=== PATIENT | female | born 1995 | race Caucasian/White ===

== ENCOUNTER 2024-11-06 20:56 | Inpatient (IN) ==
[2024-11-06] MEDS ORDERED: LIDOCAINE 1% LOCAL 20 ML VIAL INFIL PRN (21:58)
[2024-11-06] MEDS: LACTATED RINGER'S 1,000 ML IV PRN (22:08)
--- NOTE | 2024-11-06 22:23 | Obstetrical Progress Note ---
Date of Service November 06, 2024 Assessment & Plan (1) PROM (premature rupture of membranes): Plan: 29-year-old old G1, P0 at 38-week gestation. is complicated by gestational diabetes. Patient receives 35 units of Lantus at night. Presents to labor and delivery with spontaneous rupture of membranes at 2200 hrs. fluid was clear. Relevant reviewed patient is grossly ruptured. heart rate category 1. Irregular contraction FS; 95 Bedside ultrasound shows a polyp presentation. Vaginal exam by nurse; 1cm/thick/post Reviewed previous course past medical history social history family history with patient. Plan 1 Admitted 2 labs 3. Consider starting Pitocin if patient's contractions intensity or frequency and are adequate. Patient is agreeable to plan as discussed above. Results & Data Vital Signs (Past 12 Hours) Vital Signs Temp Pulse Resp BP O2 Del Method 11/06/24 21:38 36.5 C 18 Room Air 11/06/24 21:30 36.5 C 111 H 18 126/85
[2024-11-06] MEDS ORDERED: Nursing to Pharmacy Communication SCH (22:45)
[2024-11-06 22:53] LABS: Hematocrit (blood only) 37.6 % (37.0-47.0); Hemoglobin 12.9 g/dl (12.0-16.0); Mean Corpuscular Hemoglobin 31.4 pg (25.0-34.0); Mean Corpuscular Volume 91.5 fL (80.0-100.0); Platelet Count 155 K/uL (130-400); RDW Standard Deviation 41.2 fL (36.4-46.3); Red Blood Count 4.11 M/uL (4.20-5.40); White Blood Count 8.67 K/ul (4.8-10.8)
[2024-11-06] MEDS: LANTUS PER UNIT CHARGE SQ SCH (23:15)
[2024-11-06] MEDS ORDERED: NALOXONE HCL 1 MG in SODIUM CHLORIDE 0.9% 1,000 ML IV PRN (23:19)
[2024-11-06] MEDS ORDERED: ROPIVACAINE 0.5% PF 5 MG/ML 20 ML VIAL EPI PRN (23:19)
[2024-11-06] MEDS ORDERED: LIDOCAINE 2% MPF LOCAL 5 ML VIAL EPI PRN (23:19)
[2024-11-06] MEDS ORDERED: NALOXONE HCL 0.4 MG/1 ML VIAL/CARP IV PRN (23:19)
[2024-11-06] MEDS ORDERED: BUPIVACAINE 0.25% PF 30 ML VIAL EPI PRN (23:19)
[2024-11-06] MEDS ORDERED: NALBUPHINE HCL INJ 10 MG/ML AMP IV PRN (23:19)
[2024-11-06] MEDS ORDERED: diphenhydrAMINE 50 MG/ML VIAL IV PRN (23:19)
[2024-11-06] MEDS ORDERED: SODIUM CHLORIDE 0.9% PF INJ 10 ML VIAL EPI PRN (23:19)
--- NOTE | 2024-11-06 23:19 | Anesthesiology Consultation ---
Date of Service November 06, 2024 Assessment & Plan (1) Encounter for pre-operative examination: Chart Review Chart Review: Patient NOT seen in Pre Admission Testing and Acceptable Risk for Labor Epidural Consults Requested none History Height/Weight Height: 5 ft 4 in Weight: 85.275 kg Allergies Allergy/AdvReac Type Severity Reaction Status Date / Time No Known Allergies Allergy Verified 11/06/24 21:34 Medications Home Medications Medication Instructions Recorded Confirmed Last Taken famotidine 20 mg tablet (Pepcid) 20 mg PO DAILY PRN Acid Reflux 11/06/24 11/06/24 11/05/24 insulin glargine 100 unit/mL 35 unit subcut HS 11/06/24 11/06/24 11/05/24 22:00 subcutaneous cartridge metoprolol succinate 25 mg 12.5 mg PO BID 11/06/24 11/06/24 11/06/24 tablet,extended release 24 hr [id number] 1 mg 1 tab PO DAILY 11/06/24 11/06/24 11/06/24 tablet Active Medications Generic Name Dose Route Start Last Admin Trade Name Freq PRN Reason Stop Dose Admin Lactated Ringer's 1,000 mls @ 125 mls/hr 11/06/24 21:58 11/06/24 23:17 Lr IV 11/08/24 21:57 125 mls/hr .Q8H PRN Administration L&D Protocol Protocol Insulin Glargine 35 units 11/06/24 22:45 11/06/24 23:15 Lantus Per Unit Charge SQ 12/06/24 22:44 35 units HS MARIAMA Administration Past Medical History Medical History Sinus tachycardia See cardiology and is on current meds Gestational diabetes Insulin controlled Social History Smoking Status: Never smoker Hx Alcohol Use: No Hx Substance Use: No Physical Exam Vital Signs Last Vital Signs Temp 97.7 F 11/06/24 21:38 Pulse 103 H 11/06/24 23:16 Resp 18 11/06/24 21:38 BP 126/85 11/06/24 21:30 Pulse Ox 99 11/06/24 23:16 O2 Del Method Room Air 11/06/24 21:38 Testing Laboratory Results 11/06/24 22:31 11/06/24 22:12 POC Glucose 95
[2024-11-06] MEDS: LIDOCAINE 2%/EPINEPHRINE 1:200,000 20 ML PF EPI STA (23:36)
[2024-11-06] MEDS: BUPIVACAINE 0.25% PF 30 ML VIAL EPI STA (23:36)
[2024-11-06] MEDS: fentANYL 2 MCG/ML BUPIVacaine 0.125%-NSS 100ML BAG EPI PRN (23:38)
[2024-11-06] MEDS: METOPROLOL SUCC 25MG EXT REL TAB PO SCH (23:41)
[2024-11-06] MEDS: fentANYL 2 MCG/ML BUPIVacaine 0.125%-NSS 100ML BAG ONE (23:54)
[2024-11-06] MEDS: BUPIVACAINE 0.25% PF 30 ML VIAL ONE (23:54)
[2024-11-06] MEDS: SODIUM CHLORIDE 0.9% PF INJ 10 ML VIAL ONE (23:55)
[2024-11-06] MEDS: SODIUM CHLORIDE 0.9% PF INJ 10 ML VIAL EPI STA (23:55)
[2024-11-06] MEDS: LIDOCAINE 2%/EPINEPHRINE 1:200,000 20 ML PF ONE (23:55)
[2024-11-07] MEDS: OXYTOCIN 30 UNITS/NSS 30 UNITS/500 ML BAG IV PRN ×2 (01:37→10:49)
[2024-11-07] MEDS ORDERED: FAMOTIDINE 20 MG TAB PO PRN (07:39)
--- NOTE | 2024-11-07 08:39 | History & Physical Report ---
Date of Service November 07, 2024 Assessment & Plan (1) Sinus tachycardia: (2) Gestational diabetes: (3) Active labor at term: Plan: 29-year-old G1, P0 at 38 weeks and 3 days of gestation, SROM yesterday at 8 PM, GBS negative, GDMA2, on insulin, heart rate reassuring, and second stage of labor with no sensation of pressure no urge to push, trial of push with no descent of head Discussed either pushing versus labor down, patient will labor down and then s tart pushing continue to monitor closely Admission and Anticipated Discharge Date Admission Date: November 06, 2024 History of Present Illness Primary Care Provider: NO PCP Patient is seen and examined. She is a 29-year-old at 38 weeks and 3 days of gestation who was admitted last night by Dr. Ramirez for spontaneous rupture of membranes at term. She was started on oxytocin per protocol after 4 hours from rupture. She has received epidural and has been feeling comfortable. Fluid leakage has been clear and she has no complaints at the moment. Her is complicated by 1. Sinus tachycardia, is seeing cardiology and started on metoprolol, 12.5 mg twice a day, 2. GDM A2, on insulin, 35 units at night only, fingersticks have been normal since admission, growth scan at 34-week was within normal limits, denies any other medical problems, GBS negative Allergies Allergy/AdvReac Type Severity Reaction Status Date / Time No Known Allergies Allergy Verified 11/06/24 21:34 Home Medications Medication Instructions Recorded Confirmed Type famotidine 20 mg tablet (Pepcid) 20 mg PO DAILY PRN Acid Reflux 11/06/24 11/06/24 History insulin glargine 100 unit/mL 35 unit subcut HS 11/06/24 11/06/24 History subcutaneous cartridge metoprolol succinate 25 mg 12.5 mg PO BID 11/06/24 11/06/24 History tablet,extended release 24 hr [id number] 1 mg 1 tab PO DAILY 11/06/24 11/06/24 History tablet Patient History Medical History Sinus tachycardia See cardiology and is on current meds Gestational diabetes Insulin controlled Social History Smoking Status: Never smoker Hx Alcohol Use: No Hx Substance Use: No Preferred Language: [place] [employer] 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 Beliefs That Will Affect Care: None marital status: Current Living Situation: Spouse Current Living Situation Comment: house with Other Information That Helps Us Care for You: No Feels Safe at Home: Yes Safety Concerns: Feels Safe At This Time 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 no history of STDs, no history of chlamydia, gonorrhea, herpes Review of Systems as per Subjective / HPI Physical Exam Constitutional: WD/WN, vitals as above well developed, well nourished and comfortable Genitourinary: normal external appearance OB Exam Abdomen: + vertex Manual OB Exam: + cervical dilation 10 cm, + cervical effacement 100% and + station + 2 OB Exam Monitor Tracing: + external uterine monitor used and + category I Results & Data Vital Signs (Past 12 Hours) Vital Signs Temp Pulse Resp BP Pulse Ox O2 Del Method 11/07/24 08:32 118 H 139/73 11/07/24 08:31 119 H 98 11/07/24 08:26 120 H 98 11/07/24 08:21 118 H 98 11/07/24 08:16 97 11/07/24 08:16 123 H 11/07/24 08:16 121 H 130/78 11/07/24 08:11 117 H 98 11/07/24 08:06 120 H 97 11/07/24 08:01 98 11/07/24 08:01 116 H 11/07/24 08:01 116 H 116/82 11/07/24 07:56 119 H 98 11/07/24 07:51 118 H 97 11/07/24 07:46 98 11/07/24 07:46 120 H 11/07/24 07:46 120 H 117/77 11/07/24 07:41 126 H 99 11/07/24 07:36 114 H 98 11/07/24 07:31 115 H 98 11/07/24 07:26 115 H 98 11/07/24 07:21 113 H 98 11/07/24 07:16 98 11/07/24 07:16 107 H 11/07/24 07:16 113 H 127/92 11/07/24 07:11 116 H 98 11/07/24 07:06 114 H 98 11/07/24 07:02 116 H 125/90 11/07/24 07:01 116 H 98 11/07/24 06:56 118 H 98 11/07/24 06:51 111 H 98 11/07/24 06:46 98 11/07/24 06:46 118 H 11/07/24 06:46 118 H 121/80 11/07/24 06:41 114 H 97 11/07/24 06:36 108 H 97 11/07/24 06:31 117 H 127/99 97 11/07/24 06:30 16 11/07/24 06:30 16 11/07/24 06:26 118 H 96 11/07/24 06:21 108 H 96 11/07/24 06:16 105 H 97 11/07/24 06:15 93 H 89/53 L 11/07/24 06:11 96 H 97 11/07/24 06:06 100 H 97 11/07/24 06:01 97 H 96 11/07/24 06:00 98 H 16 97/57 L 11/07/24 05:56 99 H 96 11/07/24 05:51 96 H 95 11/07/24 05:48 95 H 94 11/07/24 05:47 94 H 91/54 L 11/07/24 05:46 94 H 97 11/07/24 05:41 98 H 97 11/07/24 05:40 16 11/07/24 05:40 36.6 C 16 11/07/24 05:36 100 H 96 11/07/24 05:31 94 H 96 11/07/24 05:30 97 H 85/53 L 11/07/24 05:28 95 H 94 11/07/24 05:26 106 H 96 11/07/24 05:21 87 95 11/07/24 05:19 91 H 94 11/07/24 05:16 104 H 97 11/07/24 05:15 94 H 89/52 L 11/07/24 05:11 96 H 96 11/07/24 05:08 87 94 11/07/24 05:06 86 94 11/07/24 05:01 91 H 94 11/07/24 05:00 93 H 16 92/52 L 11/07/24 04:56 90 93 11/07/24 04:51 93 H 95 11/07/24 04:50 91 H 94 11/07/24 04:47 93 H 92/52 L 11/07/24 04:46 95 H 96 11/07/24 04:45 100 H 94 11/07/24 04:41 94 H 95 11/07/24 04:36 92 H 96 11/07/24 04:31 96 11/07/24 04:31 93 H 11/07/24 04:31 95 H 92/59 L 11/07/24 04:26 94 H 95 11/07/24 04:25 93 H 94 11/07/24 04:21 92 H 95 11/07/24 04:17 104 H 94 11/07/24 04:16 97 H 95 11/07/24 04:15 93 H 92/55 L 11/07/24 04:11 97 H 97 11/07/24 04:08 94 H 94 11/07/24 04:06 96 H 96 11/07/24 04:01 105 H 97 11/07/24 04:00 100 H 18 90/57 L 11/07/24 03:56 97 H 98 11/07/24 03:51 107 H 97 11/07/24 03:46 100 H 97 11/07/24 03:45 103 H 91/52 L 11/07/24 03:41 97 H 96 11/07/24 03:36 97 H 97 11/07/24 03:31 97 11/07/24 03:31 104 H 11/07/24 03:31 100 H 100/59 L 11/07/24 03:30 16 11/07/24 03:30 36.5 C 16 11/07/24 03:26 99 H 98 11/07/24 03:21 106 H 98 11/07/24 03:16 98 11/07/24 03:16 103 H 11/07/24 03:16 96 H 101/57 L 11/07/24 03:11 102 H 97 11/07/24 03:06 108 H 97 11/07/24 03:01 101 H 97 11/07/24 03:00 103 H 16 89/59 L 11/07/24 02:56 99 H 97 11/07/24 02:51 106 H 97 11/07/24 02:47 109 H 96/70 L 11/07/24 02:46 103 H 98 11/07/24 02:45 104 H 88/53 L 11/07/24 02:41 101 H 98 11/07/24 02:36 99 H 96 11/07/24 02:31 100 H 97 11/07/24 02:30 101 H 16 95/55 L 11/07/24 02:26 100 H 98 11/07/24 02:21 101 H 97 11/07/24 02:16 103 H 97 11/07/24 02:15 99 H 94/54 L 11/07/24 02:11 97 H 97 11/07/24 02:06 97 H 96 11/07/24 02:01 102 H 97 11/07/24 02:00 100 H 100/58 L 11/07/24 01:56 100 H 97 11/07/24 01:51 104 H 96 11/07/24 01:46 98 11/07/24 01:46 101 H 11/07/24 01:46 100 H 96/56 L 11/07/24 01:41 100 H 98 11/07/24 01:36 100 H 97 11/07/24 01:31 111 H 97 11/07/24 01:30 111 H 111/74 11/07/24 01:26 116 H 99 11/07/24 01:25 18 11/07/24 01:25 36.8 C 18 11/07/24 01:21 115 H 98 11/07/24 01:16 114 H 97 11/07/24 01:15 106 H 115/72 11/07/24 01:11 109 H 96 11/07/24 01:06 111 H 96 11/07/24 01:01 113 H 97 11/07/24 01:00 105 H 115/77 11/07/24 00:57 115 H 97 11/07/24 00:51 112 H 97 11/07/24 00:46 108 H 96 11/07/24 00:45 112 H 113/78 11/07/24 00:41 111 H 96 11/07/24 00:36 107 H 97 11/07/24 00:31 99 11/07/24 00:31 118 H 11/07/24 00:31 118 H 131/84 11/07/24 00:27 119 H 98 11/07/24 00:21 112 H 97 11/07/24 00:17 112 H 98 11/07/24 00:15 106 H 100/58 L 11/07/24 00:12 100 H 97 11/07/24 00:06 107 H 97 11/07/24 00:01 110 H 98 11/07/24 00:00 105 H 101/61 11/06/24 23:56 94 H 98 11/06/24 23:52 104 H 98 11/06/24 23:46 110 H 98 11/06/24 23:45 105 H 103/61 11/06/24 23:43 125 H 116/57 L 11/06/24 23:41 107 H 109/59 L 98 11/06/24 23:39 104 H 106/63 11/06/24 23:37 105 H 11/06/24 23:37 105 H 116/73 98 11/06/24 23:35 113 H 123/81 11/06/24 23:33 114 H 133/92 11/06/24 23:31 113 H 97 11/06/24 23:27 116 H 98 11/06/24 23:22 110 H 98 11/06/24 23:18 100 H 130/92 11/06/24 23:17 36.6 C 11/06/24 23:16 103 H 99 11/06/24 23:10 119 H 98 11/06/24 23:05 106 H 98 11/06/24 23:00 107 H 98 11/06/24 22:55 103 H 98 11/06/24 22:49 104 H 99 11/06/24 22:45 103 H 98 11/06/24 22:40 111 H 98 11/06/24 22:34 103 H 97 11/06/24 21:38 36.5 C 18 Room Air 11/06/24 21:30 36.5 C 111 H 18 126/85 Laboratory Results Lab Results 11/06/24 11/06/24 11/07/24 Range/Units 22:12 22:31 06:34 WBC 8.67 (4.8-10.8) K/ul RBC 4.11 L (4.20-5.40) M/uL Hgb 12.9 (12.0-16.0) g/dl Hct 37.6 (37.0-47.0) % MCV 91.5 (80.0-100.0) fL MCH 31.4 (25.0-34.0) pg MCHC 34.3 (32.0-36.0) g/dL RDW Std Deviation 41.2 (36.4-46.3) fL RDW Coeff of Andrew 12.5 (11.5-14.5) % Plt Count 155 (130-400) K/uL MPV 11.1 (9.4-12.4) fL POC Glucose 95 70 (70-99) mg/dl Treponema pallidum Ab Negative (Negative) 11/07/24 11/07/24 Range/Units 07:29 08:34 WBC (4.8-10.8) K/ul RBC (4.20-5.40) M/uL Hgb (12.0-16.0) g/dl Hct (37.0-47.0) % MCV (80.0-100.0) fL MCH (25.0-34.0) pg MCHC (32.0-36.0) g/dL RDW Std Deviation (36.4-46.3) fL RDW Coeff of Andrew (11.5-14.5) % Plt Count (130-400) K/uL MPV (9.4-12.4) fL POC Glucose 86 86 (70-99) mg/dl Treponema pallidum Ab (Negative) (2) Gestational diabetes Gestational diabetes mellitus control: insulin-controlled Trimester: third trimester Qualified Code(s): O24.414 - Gestational diabetes mellitus in , insulin controlled
[2024-11-07] MEDS: METOPROLOL SUCC 25MG EXT REL TAB PO SCH (09:00)
[2024-11-07] MEDS: ACETAMINOPHEN 325 MG TAB PO PRN (09:04)
[2024-11-07] MEDS ORDERED: ACETAMINOPHEN 325 MG TAB PO PRN (10:50)
[2024-11-07] MEDS ORDERED: HYDROCORTISONE ACETATE 25 MG SUPP PR PRN (10:50)
[2024-11-07] MEDS ORDERED: OXYTOCIN 30 UNITS/NSS 30 UNITS/500 ML BAG IV PRN (10:50)
--- NOTE | 2024-11-07 10:56 | Delivery Summary ---
Vaginal Delivery Summary Date of Service November 07, 2024 Vaginal Delivery Summary Patient was found to be fully dilated and desires to push. She pushed for about 50 min and delivered the head and then shoulders with minimal traction. Nucal cordx2 reduced. The baby was handed off to the mother. The cord was clampedx2 and cut at 1 minute. The vagina and perineum were checked and found to have 2nd degree perineal laceration. Rectal exam was done and noted good sphincter tone. The gloves were changes. The muscles around the external sphincter of anus were held with Allis clamp and 3 approximated with 2-0 Vicryl [id number] stitches x 3.. The vaginal mucosa was repaired with 2/0 vicryl and skin on subcuticular fashion. Rectal exam was repeated and no sutures were felt The placenta was delivered spontaneously as intact and complete. The uterus was explored and found to be empty. QBL was 280 ml. The fundus was firm The baby was a viable female , Apgars 8/9, the weight is pending The mother and the baby tolerated the procedure well. No complications happened and I was present during whole procedure.
[2024-11-07] MEDS: IBUPROFEN 600 MG TAB PO PRN (11:54)
[2024-11-07] MEDS: PRENATAL VITAMIN 1 TAB PO SCH (13:00)
--- NOTE | 2024-11-07 14:15 | Anesthesia Procedure Note ---
Date of Service November 07, 2024 Anesthesia Post Epidural Note Vital Signs Vital Signs: Temp Pulse Resp BP Pulse Ox O2 Del Method 36.6 C 103 H 16 120/78 98 Room Air 11/07/24 05:40 11/07/24 12:55 11/07/24 06:30 11/07/24 12:55 11/07/24 12:51 11/06/24 21:38 Notes Mental Status: alert / awake / arousable and participated in evaluation Patient Amnestic to Procedure: No Nausea / Vomiting: adequately controlled Pain: adequately controlled Airway Patency, RR, SpO2: stable & adequate BP & HR: stable & adequate Hydration State: stable & adequate Neuraxial Anesthesia: was administered and sensory block is resolving Anesthetic Complications: no major complications apparent and Pt Satisfied with anesthetic care Epidural: Removed without complications and With tip intact
[2024-11-07] MEDS: BENZOCAINE 20% SPRY 85 APPLN/85 GM CAN EXT PRN (15:45)
[2024-11-07] MEDS: DOCUSATE SODIUM 100 MG CAP PO SCH (17:23)
[2024-11-07] MEDS: DOCUSATE SODIUM 100 MG CAP PO ONE (17:28)
[2024-11-07] MEDS ORDERED: LANTUS PER UNIT CHARGE SQ SCH ×2 (21:00)
[2024-11-07] MEDS ORDERED: LANTUS PER UNIT CHARGE SC SCH (21:00)
[2024-11-07] MEDS: POLYETHYLENE (MIRALAX) 17 GM PACK PO SCH (21:34)
[2024-11-08 06:55] LABS: Hematocrit (blood only) 34.1 % (37.0-47.0); Hemoglobin 12.0 g/dl (12.0-16.0); Mean Corpuscular Hemoglobin 32.4 pg (25.0-34.0); Mean Corpuscular Volume 92.2 fL (80.0-100.0); Platelet Count 148 K/uL (130-400); RDW Standard Deviation 42.1 fL (36.4-46.3); Red Blood Count 3.70 M/uL (4.20-5.40); White Blood Count 10.59 K/ul (4.8-10.8)
[2024-11-08] MEDS: FERROUS SULFATE 325 MG TAB PO SCH (08:04)
--- NOTE | 2024-11-08 09:33 | Obstetrical Progress Note ---
Date of Service November 08, 2024 Assessment & Plan Admission and Anticipated Discharge Date Admission Date: November 06, 2024 Subjective abdomen soft and non tender no calf tenderness ambulating well vaginal bleeding scant [id number] Results & Data Vital Signs (Past 12 Hours) Vital Signs Temp Pulse Resp BP Pulse Ox O2 Del Method 11/08/24 07:15 37 C 111 H 16 107/73 96 Room Air 11/08/24 04:00 37.1 C 116 H 18 120/71 99 Room Air 11/08/24 00:00 37.1 C 107 H 18 117/74 98 Room Air
[2024-11-08] MEDS: MEASLES, MUMPS & RUBELLA VIRUS VACCINE (MMR) 0.5ML VIAL SQ ONE (15:37)
[2024-11-08] MEDS: DIPHTHER/TETAN/PERTUS Vaccine (Tdap, Adol/Adult) 0.5mL IM ONE (15:37)
[2024-11-08] MEDS: PRENATAL VITAMIN 1 TAB PO SCH (15:38)
[2024-11-09 07:12] LABS: Hematocrit (blood only) 37.7 % (37.0-47.0); Hemoglobin 12.8 g/dl (12.0-16.0)
[2024-11-09 09:18] VITALS: RESP 18
--- NOTE | 2024-11-09 10:33 | Obstetrical Progress Note ---
Date of Service November 09, 2024 Assessment & Plan (1) Normal course: Post day #2 Vaginal delivery Pt doing well No complaints Stable vitals Stable labs. H/H: 12.8/37 Tolerating PO food and med Pt wishes to be discharged home Results & Data Vital Signs (Past 12 Hours) Vital Signs Temp Pulse Resp BP Pulse Ox O2 Del Method 11/09/24 08:00 36.8 C 105 H 18 109/72 96 Room Air 11/08/24 23:30 37.1 C 101 H 16 101/63 98 Room Air
[2024-11-09 10:47] VITALS: BP 114/75; PULSE 106; TEMP 98.4; O2SAT 95
== END 2024-11-09 12:22 | disposition home or self-care (01) | DRG 768 ==
LOC: OPB 20:56 → 4S1 21:21 → 4E2 11-07 15:31